=== PATIENT | female | born 1965 | race Caucasian/White ===

== ENCOUNTER 2017-06-20 08:51 | Emergency (ER) | payer OTHER ==
[~2017-06-20] VITALS: Ht 165.1 cm; Wt 88.4 kg
[2017-06-20 09:25] LABS: ADD MIUA? YES; BILIRUBIN NEGATIVE; BLOOD NEGATIVE; COLOR YELLOW ((YELLOW)); GLUCOSE (STRIP) NEGATIVE; KETONES NEGATIVE; LEUKOCYTES NEGATIVE; NITRITE NEGATIVE; PROTEIN (STRIP) NEGATIVE; SPECIFIC GRAVITY 1.015 (1.000-1.030); UROBILINOGEN 0.2 MG/DL (0.2-1.0)
[2017-06-20 09:30] LABS: BACTERIA RARE /HPF; EPITHELIAL CELLS RARE /HPF; MUCUS TRACE /LPF; RED BLOOD CELLS 0-5 /HPF (0-5); UCUL ADDED? NO; WHITE BLOOD CELLS 0-5 /HPF (0-5)
[2017-06-20 09:51] LABS: HEMATOCRIT 46.1 % (36.0-46.0); MCH 28.6 PG (29.0-34.0); MCHC 33.8 G/DL (30.0-36.0); MCV 84.4 FL (83-99); MEAN PLAT.VOLUME 10.4 uM^3 (9.5-12.4); PLATELET COUNT 221 K/uL (156-360); RBC DIS.WIDTH-CV 12.7 % (11.8-14.6); RBC DIS.WIDTH-SD 38.6 % (39-53); RED BLOOD COUNT 5.46 M/uL (3.80-5.20); WHITE BLOOD COUNT 7.4 K/uL (4.1-10.2)
[2017-06-20 10:01] LABS: CHLORIDE 106 mEq/L (99-109); POTASSIUM 4.5 mEq/L (3.7-5.4); SODIUM 143 mEq/L (136-147)
[2017-06-20 10:03] LABS: GLUCOSE 142 mg/dL (70-99)
[2017-06-20 10:04] LABS: ANION GAP 11 MEQ/L (2-14)
[2017-06-20 10:05] LABS: TOTAL BILIRUBIN 0.6 mg/dL (0.0-1.0)
[2017-06-20 10:06] LABS: ALKALINE PHOSPHATASE 124 IU/L (3-129)
[2017-06-20 10:07] LABS: GFR ESTIMATE (CALCULATED) > 59 mL/min/
[2017-06-20 10:08] LABS: UREA NITROGEN (BUN) 11 mg/dL (9-23)
[2017-06-20 10:10] LABS: LIPASE 27 U/L (1.0-51.0)
[2017-06-20 10:16] LABS: QUANTITATIVE HCG < 4.0 MIU/ML
[2017-06-20 13:37] VITALS: BP 140/90
[2017-06-20] MEDS ORDERED: TYLENOL WITH C1 EACH PO (13:39)
[2017-06-20] MEDS ORDERED: PRILOSEC20 MG PO (13:39)
[2017-06-20] MEDS ORDERED: ZOFRAN4 MG PO (13:39)
== END 2017-06-20 14:09 | disposition home or self-care (01) ==
LOC: EME 08:51
DX: R10.13 Epigastric pain (principal); R10.11 Right upper quadrant pain; R11.2 Nausea with vomiting, unspecified; K76.0 Fatty (change of) liver, not elsewhere classified; Z90.710 Acquired absence of both cervix and uterus; I10 Essential (primary) hypertension; E78.5 Hyperlipidemia, unspecified; E11.9 Type 2 diabetes mellitus without complications; Z91.14 Patient's other noncompliance with medication regimen
CPT/HCPCS: 76705; 80053; 81003; 83690; 84702; 85027; 99281; 99285; J2270; J2405; J2765; J7030